=== PATIENT | male | born 1990 | race African-American/Black ===

== ENCOUNTER 2023-10-04 19:08 | Emergency (ER) | payer SELFPAY ==
[2023-10-04 19:10] VITALS: BP 131/72; PULSE 79; O2SAT 94
[2023-10-04 19:14] VITALS: TEMP 36.9; BMI 36.7
[2023-10-04 19:30] VITALS: PULSE 76; RESP 23; O2SAT 97
--- NOTE | 2023-10-04 19:36 | ED.SEIZURE ---
HPI - Seizure General Chief Complaint: Seizure Stated Complaint: seizure Time Seen by Provider: 10/04/23 19:34 Source: patient and EMS Mode of arrival: EMS Limitations: no limitations History of Present Illness HPI Narrative: 33-year-old gentleman with a history of seizure disorder followed by a neurologist in., typically takes Dilantin and Keppra. 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 He did not have time to eat or drink as he usually does. He also was helping a client in a hot shower and found himself sweating profusely. He went to have some water, took his scheduled doses of Dilantin and Keppra and then had a brief grand mal seizure. He notes when he gets dehydrated he will have seizures. It has been quite awhile since he has had a previous seizure. There was no significant trauma pre or post seizure, he had an approximately 15 minute. Of postictal confusion that has now completely resolved. He notes that he has been sleeping well, no recent fevers, chills or infectious etiology. He feels that he is back to his baseline and would prefer discharge at this time. Related Data Allergies Allergy/AdvReac Type Severity Reaction Status Date / Time No Known Drug Allergies Allergy Verified 10/04/23 19:14 Review of Systems Review of Systems Narrative: Pertinent positive and negative findings as per HPI Patient History Medical History (Updated 10/04/23 @ 20:08 by Mary Hannah MD) History of seizures Social History Smoking Status: Never smoker Smoking Status: Never smoker Substance Use Type: does not use Exam Initial Vital Signs Initial Vital Signs: Vital Signs Pulse Rate 79 10/04/23 19:10 Blood Pressure 131/72 10/04/23 19:10 Pulse Oximetry 94 10/04/23 19:10 General: Healthy appearing, in no acute distress. Able to give a complete and coherent history. Well-nourished well-developed HEENT: Moist mucous membranes, normal sclera with reactive pupils, Respiratory: Lungs are clear to auscultation, no wheezing no rales no rhonchi. Full and symmetrical air movement Cardiac: Regular rate and rhythm no murmurs no bruits Abdomen: Soft, nontender, good bowel tones, no flank pain Skin: Warm and dry, no rashes Neurologic: Grossly neurologically intact with no obvious asymmetries or abnormalities, he is not hyperreflexic Extremities: No trauma, well perfused Psych: Cooperative, appropriate insight and affect Course Orders Ordered: ED Orders 10/04/23 19:37 Comprehensive Metabolic Panel Stat Vital Signs Vital signs: Vital Signs - 8 hr 10/04/23 19:10 10/04/23 19:10 10/04/23 19:14 Temperature 98.5 F Pulse Rate 79 Respiratory Rate Blood Pressure 131/72 Pulse Oximetry 94 10/04/23 19:30 Temperature Pulse Rate 76 Respiratory Rate 23 Blood Pressure Pulse Oximetry 97 MDM - Seizure Lab Data 10/04/23 19:32 MDM Narrative Medical decision making narrative: CC: Seizure Complicating co-morbidities: Known seizure disorder, on both Keppra and Dilantin Data collected from: patient Social determinants of health that may influence the patients condition: Patient notes that he has had seizures with mild dehydration. He reports being heavy, with heavy perspiration and minimal liquid intake today Differential considered: Infection, electrolyte abnormality, mild dehydration, seizure in setting of seizure disorder Exam documented above, pertinent findings include: Patient is back to baseline, he has not hyperreflexic, he has not postictal Lab Test results independently reviewed as above. Pertinent findings: CBC is unremarkable Chemistries are reassuring Discussion: 33-year-old gentleman with known seizure disorder, on Dilantin and Keppra. He had a brief grand mal seizure today that he believes was related to dehydration. He was given a L of fluids. Electrolytes and chemistries were otherwise completely unremarkable. He has not hyperreflexic at this point. He has already taken his evening doses of both Dilantin and Keppra. At this point he appears at his baseline and is safe for discharge home. I did encourage him to follow up with his primary care doctor as well as his neurologist. Discharge Plan Departure Patient Disposition: Home Clinical Impression: Epileptic seizure Instructions: DI for Seizure Disorder -- Adult Activity Restrictions/Additional Instructions: Thank you for coming in today I am sorry that you did have a seizure today. It does look like there is no obvious reason for it so your concerned that it is related to dehydration is probably correct I have given you some fluid in the emergency department Because you took your evening doses of both Dilantin and Keppra I did not give you any additional medication. Because you took them both just prior to arrival I did not draw blood levels as they will be difficult to interpret just after taking the medications I would encourage you to follow up with your neurologist and primary care physician regarding the seizure. If you find that you are getting worse or develop any new symptoms, please feel free to return to the emergency department for further evaluation. Stand Alone Forms: Patient Portal/API
--- NOTE | 2023-10-04 19:50 | PC.NURSE ---
pt reports being at work and not eating or drinking enough, pt also reports that they didnt take their seizure medications on time and felt the seizure coming on, he tried to get to his meds and was found by coworker having seizure.
[2023-10-04 20:00] VITALS: PULSE 76; RESP 23; O2SAT 98
[2023-10-04 20:12] LABS: Add Manual Diff / Slide Review NO; Basophils Absolute Auto 0 /uL (0-100); Basophils Percent Auto 0.6 % (0-2); Eosinophils Absolute Auto 0 /uL (0-450); Eosinophils Percent Auto 0.8 % (2-4); Hematocrit 46.1 % (41-53); Hemoglobin 15.5 g/dL (13.5-17.5); Lymphocytes Absolute Auto 1100 /uL (1100-4500); Lymphocytes Percent Auto 22.8 % (25-40); Mean Corpuscular HGB Conc 33.7 % (30-36); Mean Corpuscular Hemoglobin 27.5 PG (26-34); Mean Corpuscular Volume 81.7 fL (80-100); Monocytes Absolute Auto 400 /uL (0-900); Monocytes Percent Auto 7.6 % (3-14); Neutrophils Absolute Auto 3200 /uL (1500-7000); Neutrophils Percent Auto 68.2 % (50-75); Platelet Count 196 X10^3/uL (150-400); Red Blood Cell Count 5.64 X10^6/uL (4.5-5.9); Red Cell Distribution Width 14.4 % (11.6-14.8); White Blood Cell Count 4.7 X10^3/uL (4.5-11.0)
[2023-10-04] MEDS: SODIUM CHLORIDE 0.9% 1,000 ML 1000 ML IV (20:21)
[2023-10-04 20:27] LABS: Alanine Aminotransferase 43 IU/L (<50); Albumin 4.5 g/dL (3.5-5.0); Albumin Globulin Ratio 1.5 (1.0-2.8); Alkaline Phosphatase 97 U/L (38-126); Aspartate Aminotransferase 39 IU/L (17-59); Bilirubin Total 0.4 mg/dL (0.2-1.3); Blood Urea Nitrogen 12 mg/dL (9-20); Carbon Dioxide 31 mmol/L (22-32); Chloride 102 mmol/L (98-107); Estimated Glomerular Filt Rate > 60 mL/min (>60); Globulin 3.1 g/dL (1.7-4.1); Glucose 114 mg/dL (70-100); HEMOLYSIS < 15 (0-50); Potassium 4.3 mmol/L (3.4-5.1); Sodium 138 mmol/L (137-145); Total Protein 7.6 g/dL (6.3-8.2)
[2023-10-04 20:30] VITALS: PULSE 70; RESP 18; O2SAT 100
[2023-10-04 21:00] VITALS: PULSE 72; RESP 19; TEMP 36.8; O2SAT 99
== END 2023-10-04 21:26 | disposition home or self-care (01) ==
PROVIDERS: Emergency Provider Emergency Medicine
DX: G40.909 Epilepsy, unspecified, not intractable, without status epilepticus (principal)
CPT/HCPCS: 36415; 80053; 85025; 96360; 99283; 99284

== ENCOUNTER 2025-02-11 14:43 | Emergency (ER) | payer SELFPAY ==
[2025-02-11 14:52] VITALS: BP 145/84; PULSE 90; RESP 16; TEMP 36.8; O2SAT 97; BMI 35.5
--- NOTE | 2025-02-11 14:57 | DI.RAD.S_ITS ---
PROCEDURE: XR CHEST 1V INDICATIONS: Chest Pain TECHNIQUE: One view of the chest was acquired. COMPARISON: None. FINDINGS: Surgical changes and devices: None. Lungs and pleura: An incomplete inspiratory result is noted, causing a crowded appearance to the lung markings. No focal infiltrates are seen. No pneumothorax or significant pleural effusions are seen. Mediastinum: Mediastinal contours appear normal. Heart size is normal. Bones and chest wall: No suspicious bony lesions. Overlying soft tissues appear unremarkable. IMPRESSION: Low lung volumes, without an acute abnormality seen by plain film. Dictated by: Simon Mcclellan M.D. on 02/11/2025 at 14:20 Approved by: Simon Mcclellan M.D. on 02/11/2025 at 14:21
--- NOTE | 2025-02-11 14:57 | EKG_ITS ---
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
[2025-02-11 15:38] LABS: Add Manual Diff / Slide Review NO; Hematocrit 45.7 % (41-53); Hemoglobin 15.4 g/dL (13.5-17.5); Lymphocytes Absolute Auto 1300 /uL (1100-4500); Mean Corpuscular HGB Conc 33.7 % (30-36); Mean Corpuscular Hemoglobin 27.6 PG (26-34); Mean Corpuscular Volume 81.9 fL (80-100); Platelet Count 239 X10^3/uL (150-400)
[2025-02-11 15:52] LABS: Alanine Aminotransferase 75 IU/L (<50); Albumin 4.8 g/dL (3.5-5.0); Albumin Globulin Ratio 1.7 (1.0-2.8); Alkaline Phosphatase 83 U/L (38-126); Blood Urea Nitrogen 10 mg/dL (9-20); Calcium 9.0 mg/dL (8.4-10.2); Carbon Dioxide 28 mmol/L (22-32); Chloride 99 mmol/L (98-107); Creatine Kinase 619 U/L (55-170); Estimated Glomerular Filt Rate > 60 mL/min (>60); Globulin 2.9 g/dL (1.7-4.1); Glucose 150 mg/dL (70-99); HEMOLYSIS 40 (0-50); Lipase 38 U/L (23-300); Magnesium 1.9 mg/dL (1.6-2.3); Potassium 4.0 mmol/L (3.4-5.1); Sodium 135 mmol/L (137-145); Total Protein 7.7 g/dL (6.3-8.2)
[2025-02-11 16:03] LABS: NT-proBNP (BNP-Adult 18+) < 20 pg/mL (<125); Troponin I < 0.012 ng/mL (0.01-0.034)
--- NOTE | 2025-02-11 17:18 | ED_ITS ---
HPI - Chest Pain General Chief Complaint: Chest Pain Stated Complaint: heart problems Time Seen by Provider: 02/11/25 17:18 Source: patient Mode of arrival: Ambulatory Related Data Allergies Allergy/AdvReac Type Severity Reaction Status Date / Time No Known Drug Allergies Allergy Verified 10/04/23 19:14 Patient History Medical History (Updated 10/19/23 @ 00:01 by ) History of seizures Social History Smoking Status: Never smoker Smoking Status: Never smoker Exam Initial Vital Signs Initial Vital Signs: Vital Signs Temperature 98.3 F 02/11/25 14:52 Pulse Rate 90 02/11/25 14:52 Respiratory Rate 16 02/11/25 14:52 Blood Pressure 145/84 H 02/11/25 14:52 Pulse Oximetry 97 02/11/25 14:52 Oxygen Delivery Method Room Air 02/11/25 14:52 Course Orders Ordered: ED Orders 02/11/25 14:57 XR chest 1V Stat EKG-12 Lead Stat 02/11/25 15:15 Complete Blood Count AUTO DIFF Stat Comprehensive Metabolic Panel Stat Lipase Stat Magnesium Stat NT-proBNP (BNP-Adult 18+) Stat Troponin & CK Cardiac Panel Stat Discontinued Medications Aspirin (Aspirin 81 Mg Chew Tab) 324 mg PO NOW ONE Stop: 02/11/25 14:58 Vital Signs Vital signs: Vital Signs - 8 hr 02/11/25 14:52 Temperature 98.3 F Pulse Rate 90 Respiratory Rate 16 Blood Pressure 145/84 H Pulse Oximetry 97 Oxygen Delivery Method Room Air MDM - Chest Pain Lab Data 02/11/25 15:15 02/11/25 15:15 Labs: Lab Results 02/11/25 Range/Units 15:15 WBC 3.4 L (4.5-11.0) X10^3/uL RBC 5.58 (4.5-5.9) X10^6/uL Hgb 15.4 (13.5-17.5) g/dL Hct 45.7 (41-53) % MCV 81.9 (80-100) fL MCH 27.6 (26-34) PG MCHC 33.7 (30-36) % RDW 14.9 H (11.6-14.8) % Plt Count 239 (150-400) X10^3/uL Neut % (Auto) 53.5 (50-75) % Lymph % (Auto) 37.9 (25-40) % [place] % (Auto) 7.2 (3-14) % Eos % (Auto) 0.5 L (2-4) % Baso % (Auto) 0.9 (0-2) % Neut # (Auto) 1800 (6303-6233) /uL Lymph # (Auto) 1300 (2349-7276) /uL [place] # (Auto) 200 (0-900) /uL Eos # (Auto) 0 (0-450) /uL Baso # (Auto) 0 (0-100) /uL PT Cancelled INR Cancelled APTT Cancelled Sodium 135 L (137-145) mmol/L Potassium 4.0 (3.4-5.1) mmol/L Chloride 99 (98-107) mmol/L Carbon Dioxide 28 (22-32) mmol/L BUN 10 (9-20) mg/dL Creatinine 0.60 L (0.66-1.25) mg/dL Estimated GFR > 60 (>60) mL/min BUN/Creatinine Ratio 16.7 (6-22) Glucose 150 H (70-99) mg/dL Calcium 9.0 (8.4-10.2) mg/dL Magnesium 1.9 (1.6-2.3) mg/dL Total Bilirubin 0.4 (0.2-1.3) mg/dL AST 62 H (17-59) IU/L ALT 75 H (<50) IU/L Alkaline Phosphatase 83 (38-126) U/L Total Creatine Kinase 619 H (55-170) U/L Troponin I < 0.012 (0.01-0.034) ng/mL NT-Pro-B Natriuret Pep < 20 (<125) pg/mL Total Protein 7.7 (6.3-8.2) g/dL Albumin 4.8 (3.5-5.0) g/dL Globulin 2.9 (1.7-4.1) g/dL Albumin/Globulin Ratio 1.7 (1.0-2.8) Lipase 38 (23-300) U/L ECG Data Attestation: I personally reviewed and interpreted this ECG as follows: Prior ECG tracings: available for review Interpretation: EKG demonstrating sinus rhythm at a rate of 77, LA 174, QTC 407, without evidence of acute ischemic changes and without prior for comparison on independent review
[2025-02-11] MEDS: ASPIRIN 81 MG CHEW TAB 324 MG PO (19:47)
--- NOTE | 2025-02-11 19:49 | ED.CHESTPAIN ---
HPI - Chest Pain General Chief Complaint: Chest Pain Stated Complaint: heart problems Time Seen by Provider: 02/11/25 17:18 Source: patient Mode of arrival: Ambulatory History of Present Illness HPI narrative: 35-year-old male with no cardiac history presents with pinching like sharp pain in the left side of his chest that was off and on today since taken a red bull earlier this a.m.. Initially took some Tylenol and ibuprofen which made the pain subsides some and later took some aspirin by recommendation but this slight pinching is still present currently. No other symptoms or complaints at this time. No family history of any cardiac issues. Related Data Allergies Allergy/AdvReac Type Severity Reaction Status Date / Time No Known Drug Allergies Allergy Verified 10/04/23 19:14 Review of Systems Review of Systems ROS Unobtainable: All systems reviewed & are unremarkable except as noted in HPI and below Patient History Medical History (Updated 02/11/25 @ 20:39 by Skip Sotomayor MD) History of seizures Social History Smoking Status: Never smoker Smoking Status: Never smoker Exam Narrative Exam Narrative: General: Patient appears to be in no acute distress, acting appropriately Head: normocephalic, atraumatic, HEENT: Pupils equal round reactive, eyes tracking well, neck supple, no JVD Heart: regular rate and rhythm, no murmurs, rubs, or gallops heard Lungs: clear to auscultation, no adventitious sounds Abdomen: soft , nontender, nondistended, positive bowel sounds Neurological: no focal neurological signs, moving all extremities well, alert and oriented x3, Psych: good judgment ,good insight, mood is normal. Initial Vital Signs Initial Vital Signs: Vital Signs Temperature 98.3 F 02/11/25 14:52 Pulse Rate 90 02/11/25 14:52 Respiratory Rate 16 02/11/25 14:52 Blood Pressure 145/84 H 02/11/25 14:52 Pulse Oximetry 97 02/11/25 14:52 Oxygen Delivery Method Room Air 02/11/25 14:52 Scores HEART Score Heart Score history: Slightly Suspicious Heart Score EKG: Normal Heart Score Age: < 45 years old Heart Score risk factors: No known risk factors Heart Score troponin: < or = to normal limit Heart Score Total: 0 Course Orders Ordered: ED Orders 02/11/25 19:50 Troponin I Stat Discontinued Medications Aspirin (Aspirin 81 Mg Chew Tab) 324 mg PO NOW ONE Stop: 02/11/25 14:58 Last Admin: 02/11/25 19:47 Dose: 324 mg Documented By: BRIJESH Sodium Chloride (Normal Saline 0.9%) 1,000 mls @ 1,000 mls/hr IV BOLUS ONE Stop: 02/11/25 20:50 Vital Signs Vital signs: Vital Signs - 8 hr 02/11/25 20:45 Pulse Rate 70 Respiratory Rate 16 Blood Pressure 136/76 Pulse Oximetry 98 MDM - Chest Pain Lab Data 02/11/25 15:15 02/11/25 15:15 Labs: Lab Results 02/11/25 02/11/25 Range/Units 15:15 19:50 WBC 3.4 L (4.5-11.0) X10^3/uL RBC 5.58 (4.5-5.9) X10^6/uL Hgb 15.4 (13.5-17.5) g/dL Hct 45.7 (41-53) % MCV 81.9 (80-100) fL MCH 27.6 (26-34) PG MCHC 33.7 (30-36) % RDW 14.9 H (11.6-14.8) % Plt Count 239 (150-400) X10^3/uL Neut % (Auto) 53.5 (50-75) % Lymph % (Auto) 37.9 (25-40) % [place] % (Auto) 7.2 (3-14) % Eos % (Auto) 0.5 L (2-4) % Baso % (Auto) 0.9 (0-2) % Neut # (Auto) 1800 (4124-7506) /uL Lymph # (Auto) 1300 (3276-5178) /uL [place] # (Auto) 200 (0-900) /uL Eos # (Auto) 0 (0-450) /uL Baso # (Auto) 0 (0-100) /uL PT Cancelled INR Cancelled APTT Cancelled Sodium 135 L (137-145) mmol/L Potassium 4.0 (3.4-5.1) mmol/L Chloride 99 (98-107) mmol/L Carbon Dioxide 28 (22-32) mmol/L BUN 10 (9-20) mg/dL Creatinine 0.60 L (0.66-1.25) mg/dL Estimated GFR > 60 (>60) mL/min BUN/Creatinine Ratio 16.7 (6-22) Glucose 150 H (70-99) mg/dL Calcium 9.0 (8.4-10.2) mg/dL Magnesium 1.9 (1.6-2.3) mg/dL Total Bilirubin 0.4 (0.2-1.3) mg/dL AST 62 H (17-59) IU/L ALT 75 H (<50) IU/L Alkaline Phosphatase 83 (38-126) U/L Total Creatine Kinase 619 H (55-170) U/L Troponin I < 0.012 < 0.012 (0.01-0.034) ng/mL NT-Pro-B Natriuret Pep < 20 (<125) pg/mL Total Protein 7.7 (6.3-8.2) g/dL Albumin 4.8 (3.5-5.0) g/dL Globulin 2.9 (1.7-4.1) g/dL Albumin/Globulin Ratio 1.7 (1.0-2.8) Lipase 38 (23-300) U/L Imaging Data Chest x-ray: Radiologist's Impression: Low lung volumes, without an acute abnormality seen by plain film. ECG Data Interpretation: EKG showed a normal sinus rhythm, normal axis, 77 beats per minute, normal LA intervals no STT wave changes. No previous EKG for comparison MDM Narrative Medical decision making narrative: 35-year-old male with a heart score of 0 presenting with atypical chest pain after having a red bull earlier in the a.m.. Patient workup negative for cardiac origin of pain. Patient advised to follow up if pain worsens or can follow up with Cardiology. Discharge Plan Departure Patient Disposition: Home Clinical Impression: Atypical chest pain Instructions: DI for Atypical Chest Pain Activity Restrictions/Additional Instructions: Chest pain is less likely from your heart. Try to avoid too much caffeine for now. Hydrate well. Follow up on elevated liver enzymes with your pcp. Can come back if symptoms worsened or reappear. Stand Alone Forms: Patient Portal/API
[2025-02-11 20:20] LABS: Troponin I < 0.012 ng/mL (0.01-0.034)
[2025-02-11 20:45] VITALS: BP 136/76; PULSE 70; RESP 16; O2SAT 98
== END 2025-02-11 20:50 | disposition home or self-care (01) ==
PROVIDERS: Student in an Organized Health Care Education/Training Program; Emergency Provider Family Medicine
DX: R07.89 Other chest pain (principal)
CPT/HCPCS: 71045; 80053; 82550; 83690; 83735; 83880; 84484; 85025; 93005; 93010; 99283; 99284